=== PATIENT | female | born 1950 | race African-American/Black ===

== ENCOUNTER 2024-03-11 14:03 | Emergency (ER) | payer OTHER ==
[~2024-03-11] VITALS: Ht 165.1 cm; Wt 64.0 kg
[2024-03-11 14:06] VITALS: O2SAT 100
[2024-03-11 15:02] LABS: CHLORIDE 110 mEq/L (98-107); POTASSIUM 4.8 mEq/L (3.5-5.1); SODIUM 141 mEq/L (136-145)
[2024-03-11 15:03] LABS: CARBON DIOXIDE 28 mEq/L (21-32)
[2024-03-11 15:08] LABS: CREATININE 0.6 mg/dL (0.6-1.0); GLUCOSE 98 mg/dL (70-105); UREA NITROGEN BLOOD 14 mg/dL (9-23)
[2024-03-11 15:15] LABS: TROPONIN I HIGH SENSITIVITY 55 ng/L (3.0-34)
[2024-03-11] MEDS: SODIUM CHLORIDE 0.9% 1,000 ML IV ONE (15:23)
[2024-03-11 16:05] LABS: BASOPHILS % 0.5 % (0.0-2.0); EOSINOPHILS % 0.5 % (0.0-5.0); HEMATOCRIT. 36.9 % (36.0-48.0); HEMOGLOBIN. 11.8 g/dL (12.0-16.0); LYMPHOCYTES % 50.3 % (20.0-50.0); MEAN CORPUSCULAR HGB CONC 32.1 g/dL (31.0-37.0); MEAN CORPUSCULAR VOLUME 87.4 fL (81.0-99.0); MEAN PLATELET VOLUME 9.4 fl (7.4-10.4); MONOCYTES % 8.8 % (2.0-8.0); NEUTROPHILS % 39.9 % (40.0-76.0); PLATELET 220 x1000/uL (130-400); RED BLOOD CELL COUNT 4.23 mill/uL (4.2-5.4); RED CELL DISTRIBUTION WIDTH 16.8 % (11.6-14.6); WHITE BLOOD COUNT 6.3 x1000/uL (4.5-11.0)
[2024-03-11 17:29] LABS: TROPONIN I HIGH SENSITIVITY 55 ng/L (3.0-34)
[2024-03-11 20:30] VITALS: TEMP 98
[2024-03-11] MEDS: ASPIRIN 325MG EC TABLET PO NR (20:47)
[2024-03-11 21:20] VITALS: BP 111/50; PULSE 96; RESP 15
== END 2024-03-11 21:45 | disposition short-term general hospital (02) ==
LOC: ER 14:03 → EDBEDREQ 14:23 → ER 21:45
DX: R55 Syncope and collapse (principal); I21.4 Non-ST elevation (NSTEMI) myocardial infarction; Z88.0 Allergy status to penicillin; Z88.1 Allergy status to other antibiotic agents; Z88.8 Allergy status to other drugs, medicaments and biological substances
CPT/HCPCS: 99285; 96360; 70450; 71045; 96361; 80048; 83880; 85025; 84484; 36415; 93005; J7030